=== PATIENT | female | born 1990 | race American Indian/Alaskan Native ===

== ENCOUNTER 2017-09-21 11:28 | Outpatient (CLI) | payer MEDICAID ==
--- NOTE | 2017-09-21 13:06 | Ultrasound Report ---
BIOPHYSICAL PROFILE: 09/21/17 11:28:00 CLINICAL: Well Being FINDINGS: The biophysical profile was scored as followin - breathing movements 2 - movements 2 - posture and tone 2 - Qualitative amniotic fluid volume 8 - TOTAL SCORE OF POSSIBLE 8 Heart Rate (bpm) = 147 IMPRESSION: Normal study
--- NOTE | 2017-09-21 13:11 | Ultrasound Report ---
OBSTETRICAL ULTRASOUND: 09/21/17 11:34:00 CLINICAL:Post dates. Check weight and fluid. COMPARISON:None. Gestation: [place] Position: Cephalic Amniotic Fluid: Within normal limits. CHAD = 14.2 Heart Rate: 136 BPM A survey was not performed. Measurements: BPD: 9.7 cm = 39 w 4 d HC: 34 cm = 39 w 5 d AC: 33.3 cm = 37 w 2 d FL: 7.3 cm = 37 w 2 d HC/AC Ratio: 1.03 Cephalic Index: 81.7 Estimated Weight: 3313 grams which is at the 16th percentile. LMP: 12/08/16 IMPRESSION: Single living intrauterine fetus at 41 weeks 0 days based on clinical dating. growth lag. Clinical age = 41 w 0 d EDC: 09/14/17 US Gest. Age = 38 w 3 d EDC: 10/02/17
== END 2017-09-21 13:33 | disposition home or self-care (01) ==
LOC: TRG 11:28 → LD 11:29 → TRG 13:32
PROVIDERS: ATTEND Obstetrics & Gynecology
DX: O48.0 Post-term pregnancy (principal); Z3A.41 41 weeks gestation of pregnancy
CPT/HCPCS: 59025; 76816; 76819

== ENCOUNTER 2017-09-25 20:02 | Inpatient (IN) | payer OTHER, MEDICAID ==
[2017-09-25] MEDS ORDERED: SUBLIMAZE IV PRN (21:07)
[2017-09-25] MEDS ORDERED: BRETHINE SUB-Q PRN (21:07)
[2017-09-25] MEDS ORDERED: ePHEDrine SULFATE IV PRN (21:07)
[2017-09-25] MEDS ORDERED: MINERAL OIL PO PRN (21:07)
[2017-09-25] MEDS ORDERED: STADOL IV PRN (21:07)
[2017-09-25] MEDS ORDERED: ZOFRAN IV PRN (21:07)
[2017-09-25] MEDS ORDERED: XYLOCAINE 2% INFILTRATI ONE (21:07)
[2017-09-25] MEDS ORDERED: CERVIDIL VG ONE (21:07)
[2017-09-25] MEDS ORDERED: AMBIEN PO PRN (21:10)
--- NOTE | 2017-09-25 21:16 | History and Physical Report ---
History of Present Illness Date of examination: 09/25/17 Date of admission: 09/25/17 20:02 Chief complaint: IOL @ 41+4 History of present illness: EDC Confirmation: 09/14/2017 Past History : 1 Term Births: 0 Premature Births: 0 Living Children: 0 Para: 0 Mult. Births: 0 Prev : 0 Prev. attempt? 0 Aborta: 0 Elect. Ab: 0 Spont. Ab: 0 Ectopics: 0 Past Medical History: Negative Past Medical History Past Surgical History: negative Past Medical History Anesthesia Complications: negative Anemia: negative Autoimmune Disorder: negative Bleeding Disorder: negative Blood Transfusions: negative Breast Disease: negative Diabetes: negative Heart Disease: negative Hypertension: negative Hepatitis/Liver Disease: negative Kidney Disease/UTI: negative Neurologic/Epilepsy/Migraines: negative Phlebitis/Varicosities: negative Psychiatric: negative Pulmonary Disease/Asthma: negative Thyroid Disease: negative Hospitalizations: negative Surgery (Non-modern and contemporary art curator): negative Abnormal PAP: negative SHAYLEE Exposure: negative Infertility: negative Uterine Anomaly: negative Uterine Surgery (not C/S): negative Other Gynecologic Problems: negative Family Hx: Aunt: breast cancer () Social Hx: Single Works for [employer] No ETOH/Drugs/Smoking Infection History Hx of STD: none HIV Risk Eval: no Hepatitis B Risk Eval: low risk Personal hx. of genital herpes: no Partner hx. of genital herpes: no Rash, Viral, or Febrile illness since last LMP? no Varicella/Chicken Pox Status: Unknown Genetic History Congenital Heart Defect: Mom: no Dad: no Adam Disease: Mom: no Dad: no Thalassemia Mom: no Dad: no Neural Tube Defect Mom: no Dad: no Down's Syndrome Mom: no Dad: no Yuriy-Sachs Mom: no Dad: no Sickle Cell Disease/Trait Mom: no Dad: no Hemophilia Mom: no Dad: no Muscular Dystrophy Mom: no Dad: no Cystic Fibrosis Mom: no Dad: no Larisa Chorea Mom: no Dad: no Mental Retardation Mom: no Dad: no Fragile X Mom: no Dad: no Other Genetic/Chromosomal Disorder Mom: no Dad: no Child w/other defect Mom: no Dad: no Enviromental Exposures Xray Exposure: no Medication, drug, or alcohol use since LMP: no Chemical/Other Exposure: no Exposure to Cat Liter: no Hx of Parvovirus (Fifth Disease): no Occupational Exposure to Children: none Active Medications (reviewed today): None Current Allergies (reviewed today): No known allergies Past History Past Medical History: no pertinent history Past Surgical History: no surgical history - Obstetrical History Expected Date of Delivery: 09/14/17 Actual Gestation: 41 Week(s) 4 Day(s) : 1 Para: 0 Hx # Term Pregnancies: 0 Number of Pregnancies: 0 Spontaneous Abortions: 0 Induced : 0 Number of Living Children: 0 Medications and Allergies Allergies Allergy/AdvReac Type Severity Reaction Status Date / Time No Known Allergies Allergy Unverified 09/21/17 11:31 - Physical Exam Breasts: Positive: normal Cardiovascular: Regular rate Lungs: Positive: Clear to auscultation Abdomen: Positive: normal appearance, soft Genitourinary (Female): Positive: normal external genitalia, normal perenium Vulva: both: normal Vagina: Positive: normal moisture Uterus: Positive: normal size Extremities: Positive: normal Deep Tendon Reflex Grade: Normal +2 - Obstetrical FHR: category 1 Uterine Contraction Monitor Mode: External Cervical Dilatation: 0.5 Cervical Effacement Percentage: 30 station: -3 Uterine Contraction Pattern: Regular Uterine Tone Measurement Phase: Contraction Uterine Contraction Intensity: Mild Results Result Diagrams: 09/25/17 21:40 All other labs normal. Assessment and Plan 27y/o @ 41+4 weeks, admitted for induction of labor d/t post dates. She received regular care after 30 weeks but missed all appointments between 16-30 weeks gestation. GBS negative. US EFW done at [facility] 09/21/17 showed 3313gms, cephalic with a normal CHAD. Plan for cervical ripening tonight and pitocin tomorrow. elevated b/p noted upon admission, will get pre-e labs. pt has no hx of elevated b/p this . She denies DUMONT, visual changes or epigastric pain. - Patient Problems (1) Prolonged Current Visit: Yes Status: Acute (2) 41 weeks gestation of Current Visit: Yes Status: Acute (3) Elevated blood pressure affecting , antepartum Current Visit: Yes Status: Acute Plan to address problem: Pre-e labs monitoring of b/p and labs work
[2017-09-25] MEDS ORDERED: PITOCin/NS 20 UNIT/1000ML DRIP 20 UNITS/1,000 ML BAG IV SCH (22:00)
[2017-09-25 22:01] LABS: Hematocrit 31.2 % (30.3-42.9); Hemoglobin 10.4 gm/dl (10.1-14.3); Mean Corpuscular HGB Conc 33 % (30-34); Mean Corpuscular Hemoglobin 27 pg (28-32); Mean Corpuscular Volume 81 fl (79-97); Platelet Count 180 K/mm3 (140-440); Red Blood Count 3.87 M/mm3 (3.65-5.03); Red Cell Distribution Width 16.4 % (13.2-15.2)
[2017-09-25] MEDS: LACTATED RINGERS 1,000 ML IV SCH ×2 (22:05→23:22)
[2017-09-25 22:21] LABS: Alanine Aminotransferase 11 units/L (7-56); Uric Acid 4.9 mg/dL (3.5-7.6)
[2017-09-25] MEDS: PITOCin/NS 30 UNIT/500ML 30 UNITS/500 ML BAG IV SCH (23:22)
[2017-09-26 04:30] LABS: Amorphous Crystals,Urine 1+; Bacteria,Urine 2+ /HPF (Negative); Bilirubin,Urine NEG (Negative); Blood,Urine MOD (Negative); Color,Urine Yellow (Yellow); Hyaline Casts,Urine 3 /LPF; Urobilinogen,Urine < 2.0 mg/dL (<2.0)
--- NOTE | 2017-09-26 05:43 | Progress Note ---
Assessment and Plan pt denies any DUMONT, blurred vision, chest pain at this time BPs noted to be elevated 160-/90-80 DTRs wnl Edema noted on LE SVE 2,100,-3 SROM @ 0300 with continued copious amts of clear fluid. Internal monitors placed. Pitocin remains @ 4mu. Will observe strip X 30 mins if no further variable decels will try to increase pitocin. Will consult with MD personal assistant Subjective - Subjective Date of service: 09/26/17 (pt rates pain @ 6-7; desires epidural; variable decels Internal monitors placed) Principal diagnosis: IOL IUP @ 41.4weeks; mild PreE Patient reports: movement normal, contractions (irregular; some coupling) Objective - Vital Signs Vital Signs: Vital Signs - 12hr 09/25/17 09/26/17 21:19 03:57 Temperature 98.0 F 98.7 F Pulse Rate 89 80 Respiratory 16 16 Rate Blood Pressure 165/90 166/89 [Right] O2 Sat by Pulse 98 Oximetry - Exam Breasts: deferred Cardiovascular: Regular rate Lungs: Normal air movement Abdomen: Present: normal appearance, soft. Absent: distention, tenderness Vulva: both: normal Uterus: Present: normal FHR: auscultation normal, category 1 (2variables; overall Cat 1) Uterine Contraction Monitor Mode: Internal Cervical Dilatation: 2 (pt continues to have copious amts of clear fluid) Cervical Effacement Percentage: 100 (Internals applied) station: -3 Uterine Contraction Frequency (min): q2-4 Uterine Contraction Duration: 45 Uterine Contraction Pattern: Irregular Uterine Tone Measurement Phase: Resting Uterine Contraction Intensity: Moderate Extremities: edema (bilateral LE) Deep Tendon Reflex Grade: Normal +2 - Labs Labs: Abnormal Labs 09/25/17 09/25/17 09/25/17 04:00 21:40 21:40 MCH 27 L RDW 16.4 H Creatinine 0.5 L Urine pH 8.0 H Laboratory Results - last 24 hr 09/25/17 09/25/17 09/25/17 04:00 21:40 21:40 WBC 6.6 RBC 3.87 Hgb 10.4 Hct 31.2 MCV 81 MCH 27 L MCHC 33 RDW 16.4 H Plt Count 180 Creatinine Estimated GFR Uric Acid AST ALT Lactate Dehydrogenase Urine Color Yellow Urine Turbidity Cloudy Urine pH 8.0 H Ur Specific [place] 1.004 Urine Protein 100 mg/dl Urine Glucose (UA) Neg Urine Ketones Neg Urine Blood Mod Urine Nitrite Neg Urine Bilirubin Neg Urine Urobilinogen < 2.0 Ur Leukocyte Esterase Neg Urine WBC (Auto) 6.0 Urine RBC (Auto) 148.0 U Epithel Cells (Auto) 3.0 Urine Bacteria (Auto) 2+ Amorphous Crystals 1+ Hyaline Casts 3 Blood Type O POSITIVE Antibody Screen Negative 09/25/17 21:40 WBC RBC Hgb Hct MCV MCH MCHC RDW Plt Count Creatinine 0.5 L Estimated GFR > 60 Uric Acid 4.9 AST 15 ALT 11 Lactate Dehydrogenase 166 Urine Color Urine Turbidity Urine pH Ur Specific [place] Urine Protein Urine Glucose (UA) Urine Ketones Urine Blood Urine Nitrite Urine Bilirubin Urine Urobilinogen Ur Leukocyte Esterase Urine WBC (Auto) Urine RBC (Auto) U Epithel Cells (Auto) Urine Bacteria (Auto) Amorphous Crystals Hyaline Casts Blood Type Antibody Screen
[2017-09-26] MEDS: LACTATED RINGERS 1,000 ML IV SCH ×4 (06:02→18:03)
[2017-09-26] MEDS ORDERED: MAGNESIUM SULFATE 4GM/100ML 4 GM/100 ML BAG IV ONE ×2 (06:11→06:16)
--- NOTE | 2017-09-26 06:15 | Event Note ---
Date: 09/26/17 (consulted with ) DX now mild pre-e Will start MGSO4. Pt aware All questions addressed. Orders in EMR
[2017-09-26] MEDS ORDERED: MAGNESIUM SULFATE 40GM/1000ML 40 GM/1,000 ML BAG IV ONE (06:16)
[2017-09-26] MEDS: MAGNESIUM SULFATE 40GM/1000ML 40 GM/1,000 ML BAG IV SCH (06:47)
[2017-09-26] MEDS ORDERED: NACL 0.9% 1000 ML 1,000 ML ONE ×2 (07:42→15:32)
--- NOTE | 2017-09-26 08:05 | Progress Note ---
Assessment and Plan Explained all findings to pt concerning variable decels with baby. Pit off O2 on Fluid bolus for epidural SVE 3-4,100,-2 ISE replaced. Amnioinfusion started. Dr Burris on unit aware of pt condition. Will restart pit @ 2mu Re-eval prn. Subjective - Subjective Date of service: 09/26/17 Principal diagnosis: IOL IUP @ 41.4weeks; mild PreE Patient reports: movement normal, contractions (irregular; some coupling) Objective - Vital Signs Vital Signs: Vital Signs - 12hr 09/25/17 09/25/17 09/25/17 21:19 22:27 23:02 Temperature 98.0 F Pulse Rate 89 92 H 79 Respiratory 16 Rate Blood Pressure 165/90 171/96 158/99 [Right] O2 Sat by Pulse Oximetry 09/26/17 09/26/17 09/26/17 00:03 00:34 01:32 Temperature Pulse Rate 84 86 86 Respiratory Rate Blood Pressure 139/90 138/87 137/89 [Right] O2 Sat by Pulse Oximetry 09/26/17 09/26/17 09/26/17 02:33 03:02 03:33 Temperature Pulse Rate 68 72 65 Respiratory Rate Blood Pressure 150/80 153/85 176/83 [Right] O2 Sat by Pulse Oximetry 09/26/17 09/26/17 09/26/17 03:57 04:32 05:03 Temperature 98.7 F Pulse Rate 80 70 90 Respiratory 16 Rate Blood Pressure 166/89 146/81 176/89 [Right] O2 Sat by Pulse 98 Oximetry 09/26/17 09/26/17 09/26/17 05:20 05:32 06:03 Temperature 99.1 F Pulse Rate 76 68 80 Respiratory Rate Blood Pressure 143/85 159/76 143/86 [Right] O2 Sat by Pulse Oximetry 09/26/17 09/26/17 09/26/17 06:33 06:36 06:41 Temperature Pulse Rate 82 89 92 H Respiratory 20 Rate Blood Pressure 164/94 136/69 130/64 [Right] O2 Sat by Pulse 100 Oximetry 09/26/17 06:47 Temperature Pulse Rate 91 H Respiratory 18 Rate Blood Pressure 135/76 [Right] O2 Sat by Pulse 100 Oximetry - Exam Breasts: deferred Cardiovascular: Regular rate Lungs: Normal air movement Abdomen: Present: normal appearance, soft. Absent: distention, tenderness Uterus: Present: normal FHR: auscultation normal, category 2 (deep variables ) Uterine Contraction Monitor Mode: Internal Cervical Dilatation: 3.5 Cervical Effacement Percentage: 100 station: -2 Uterine Contraction Pattern: Irregular Uterine Tone Measurement Phase: Resting Uterine Contraction Intensity: Moderate - Labs Labs: Abnormal Labs 09/25/17 09/25/17 09/25/17 04:00 21:40 21:40 MCH 27 L RDW 16.4 H Creatinine 0.5 L Magnesium Urine pH 8.0 H 09/26/17 06:55 MCH RDW Creatinine Magnesium 5.10 H Urine pH Laboratory Results - last 24 hr 09/25/17 09/25/17 09/25/17 04:00 21:40 21:40 WBC 6.6 RBC 3.87 Hgb 10.4 Hct 31.2 MCV 81 MCH 27 L MCHC 33 RDW 16.4 H Plt Count 180 Creatinine Estimated GFR Uric Acid Magnesium AST ALT Lactate Dehydrogenase Urine Color Yellow Urine Turbidity Cloudy Urine pH 8.0 H Ur Specific [place] 1.004 Urine Protein 100 mg/dl Urine Glucose (UA) Neg Urine Ketones Neg Urine Blood Mod Urine Nitrite Neg Urine Bilirubin Neg Urine Urobilinogen < 2.0 Ur Leukocyte Esterase Neg Urine WBC (Auto) 6.0 Urine RBC (Auto) 148.0 U Epithel Cells (Auto) 3.0 Urine Bacteria (Auto) 2+ Amorphous Crystals 1+ Hyaline Casts 3 Blood Type O POSITIVE Antibody Screen Negative 09/25/17 09/26/17 21:40 06:55 WBC RBC Hgb Hct MCV MCH MCHC RDW Plt Count Creatinine 0.5 L Estimated GFR > 60 Uric Acid 4.9 Magnesium 5.10 H AST 15 ALT 11 Lactate Dehydrogenase 166 Urine Color Urine Turbidity Urine pH Ur Specific [place] Urine Protein Urine Glucose (UA) Urine Ketones Urine Blood Urine Nitrite Urine Bilirubin Urine Urobilinogen Ur Leukocyte Esterase Urine WBC (Auto) Urine RBC (Auto) U Epithel Cells (Auto) Urine Bacteria (Auto) Amorphous Crystals Hyaline Casts Blood Type Antibody Screen
--- NOTE | 2017-09-26 08:11 | Anesthesia Consultation ---
Anesthesia Consult and Med Hx Date of service: 09/26/17 - Airway Anesthetic Teeth Evaluation: Good ROM Head & Neck: Adequate Mental/Hyoid Distance: Adequate Mallampati Class: Class II Intubation Access Assessment: Probably Good - Pre-Operative Health Status ASA Pre-Surgery Classification: ASA2 Proposed Anesthetic Plan: Epidural, Spinal - Pulmonary Hx Asthma: No COPD: No Hx Pneumonia: No - Cardiovascular System Hx Hypertension: No (PIH) - Central Nervous System Hx Seizures: No Hx Psychiatric Problems: No - Endocrine Hx Renal Disease: No Hx End Stage Renal Disease: No Hx Hypothyroidism: No Hx Hyperthyroidism: No - Hematic Hx Anemia: No Hx Sickle Cell Disease: No - Other Systems Hx Alcohol Use: No
[2017-09-26] MEDS ORDERED: ePHEDrine SULFATE IV PRN (08:30)
[2017-09-26] MEDS ORDERED: NARCAN 2 MG/2 ML IV PRN (09:00)
[2017-09-26] MEDS: fentaNYL-BUPIV 2 MCG/ML-0.125% 200 MCG/100 ML BAG EPIDURAL SCH ×2 (09:50→18:00)
[2017-09-26] MEDS: PITOCin/NS 30 UNIT/500ML 30 UNITS/500 ML BAG IV SCH ×5 (10:02→19:39)
--- NOTE | 2017-09-26 13:33 | Progress Note ---
Assessment and Plan Pt resting No c/o voiced Cervical chg noted Pit @ 12 mu Will re-eval as needed. Subjective - Subjective Date of service: 09/26/17 (comfortable with epidural) Principal diagnosis: IOL IUP @ 41.4weeks; mild PreE Patient reports: movement normal, contractions (irregular; some coupling) Objective - Vital Signs Vital Signs: Vital Signs - 12hr 09/26/17 09/26/17 09/26/17 01:32 02:33 03:02 Temperature Pulse Rate 86 68 72 Respiratory Rate Blood Pressure 137/89 150/80 153/85 [Right] O2 Sat by Pulse Oximetry 09/26/17 09/26/17 09/26/17 03:33 03:57 04:32 Temperature 98.7 F Pulse Rate 65 80 70 Respiratory 16 Rate Blood Pressure 176/83 166/89 146/81 [Right] O2 Sat by Pulse 98 Oximetry 09/26/17 09/26/17 09/26/17 05:03 05:20 05:32 Temperature Pulse Rate 90 76 68 Respiratory Rate Blood Pressure 176/89 143/85 159/76 [Right] O2 Sat by Pulse Oximetry 09/26/17 09/26/17 09/26/17 06:03 06:33 06:36 Temperature 99.1 F Pulse Rate 80 82 89 Respiratory 20 Rate Blood Pressure 143/86 164/94 136/69 [Right] O2 Sat by Pulse 100 Oximetry 09/26/17 09/26/17 09/26/17 06:41 06:47 08:04 Temperature 97.6 F Pulse Rate 92 H 91 H 98 H Respiratory 18 16 Rate Blood Pressure 130/64 135/76 134/93 [Right] O2 Sat by Pulse 100 Oximetry 09/26/17 09/26/17 09/26/17 09:24 09:34 09:38 Temperature Pulse Rate 110 H 111 H Respiratory 16 Rate Blood Pressure 136/86 123/68 134/63 [Right] O2 Sat by Pulse Oximetry 09/26/17 09/26/17 09/26/17 10:00 11:04 11:55 Temperature 96.5 F L Pulse Rate 85 87 Respiratory 16 Rate Blood Pressure 119/62 116/67 129/76 [Right] O2 Sat by Pulse Oximetry - Exam Breasts: deferred Cardiovascular: Regular rate Lungs: Normal air movement Abdomen: Present: normal appearance, soft. Absent: distention, tenderness Uterus: Present: normal FHR: auscultation normal, category 1 Uterine Contraction Monitor Mode: Internal Cervical Dilatation: 6 Cervical Effacement Percentage: 100 station: 0 Uterine Contraction Pattern: Regular Uterine Tone Measurement Phase: Resting Uterine Contraction Intensity: Moderate Extremities: edema Deep Tendon Reflex Grade: Normal +2 - Labs Labs: Abnormal Labs 09/25/17 09/25/17 09/25/17 04:00 21:40 21:40 MCH 27 L RDW 16.4 H Creatinine 0.5 L Magnesium Urine pH 8.0 H 09/26/17 09/26/17 06:55 11:34 MCH RDW Creatinine Magnesium 5.10 H 4.70 H Urine pH Laboratory Results - last 24 hr 09/25/17 09/25/17 09/25/17 04:00 21:40 21:40 WBC 6.6 RBC 3.87 Hgb 10.4 Hct 31.2 MCV 81 MCH 27 L MCHC 33 RDW 16.4 H Plt Count 180 Creatinine Estimated GFR Uric Acid Magnesium AST ALT Lactate Dehydrogenase Urine Color Yellow Urine Turbidity Cloudy Urine pH 8.0 H Ur Specific [place] 1.004 Urine Protein 100 mg/dl Urine Glucose (UA) Neg Urine Ketones Neg Urine Blood Mod Urine Nitrite Neg Urine Bilirubin Neg Urine Urobilinogen < 2.0 Ur Leukocyte Esterase Neg Urine WBC (Auto) 6.0 Urine RBC (Auto) 148.0 U Epithel Cells (Auto) 3.0 Urine Bacteria (Auto) 2+ Amorphous Crystals 1+ Hyaline Casts 3 Blood Type O POSITIVE Antibody Screen Negative 09/25/17 09/26/17 09/26/17 21:40 06:55 11:34 WBC RBC Hgb Hct MCV MCH MCHC RDW Plt Count Creatinine 0.5 L Estimated GFR > 60 Uric Acid 4.9 Magnesium 5.10 H 4.70 H AST 15 ALT 11 Lactate Dehydrogenase 166 Urine Color Urine Turbidity Urine pH Ur Specific [place] Urine Protein Urine Glucose (UA) Urine Ketones Urine Blood Urine Nitrite Urine Bilirubin Urine Urobilinogen Ur Leukocyte Esterase Urine WBC (Auto) Urine RBC (Auto) U Epithel Cells (Auto) Urine Bacteria (Auto) Amorphous Crystals Hyaline Casts Blood Type Antibody Screen
--- NOTE | 2017-09-26 17:09 | Event Note ---
Date: 09/26/17 (pt comfortable ) SVE No chg Will continue to increase pitocin Pt aware of possible operative delivery. made aware of pt's status
[2017-09-26] MEDS ORDERED: XYLOCAINE MPF 2% ONE ×4 (18:25→21:15)
[2017-09-26] MEDS ORDERED: PEPCID IV SCH (19:55)
[2017-09-26] MEDS ORDERED: REGLAN IV SCH (19:55)
[2017-09-26] MEDS ORDERED: BICITRA PO SCH (19:55)
[2017-09-26] MEDS ORDERED: PITOCin/NS 20 UNIT/1000ML DRIP 20 UNITS/1,000 ML BAG IV SCH (20:00)
[2017-09-26] MEDS ORDERED: ANCEF/STERILE WATER 2 GM/20 ML 2 GM/20 ML SYRINGE IV NR (20:00)
[2017-09-26] MEDS ORDERED: LACTATED RINGERS 1,000 ML IV SCH (20:00)
--- NOTE | 2017-09-26 20:00 | Progress Note ---
Assessment and Plan - Patient Problems (1) 41 weeks gestation of Current Visit: Yes Status: Acute (2) Mild pre-eclampsia Current Visit: Yes Status: Acute (3) Failure of cervical dilation Current Visit: Yes Status: Acute Plan to address problem: No cervical change for ~6hrs, options reviewed, risks explained, consents reviewed and signs. She voiced understanding and desires to proceed with c/s. Subjective - Subjective Date of service: 09/26/17 Principal diagnosis: IOL IUP @ 41.4weeks; mild PreE Patient reports: movement normal, contractions (irregular; some coupling) , no new complaints Objective - Vital Signs Vital Signs: Vital Signs - 12hr 09/26/17 09/26/17 09/26/17 08:04 09:24 09:34 Temperature 97.6 F Pulse Rate 98 H 110 H Respiratory 16 16 Rate Blood Pressure 134/93 136/86 123/68 [Right] O2 Sat by Pulse Oximetry 09/26/17 09/26/17 09/26/17 09:38 10:00 11:04 Temperature 96.5 F L Pulse Rate 111 H 85 Respiratory Rate Blood Pressure 134/63 119/62 116/67 [Right] O2 Sat by Pulse Oximetry 09/26/17 09/26/17 09/26/17 11:55 14:00 14:08 Temperature 97.6 F Pulse Rate 87 Respiratory 16 18 Rate Blood Pressure 129/76 130/76 [Right] O2 Sat by Pulse Oximetry 09/26/17 09/26/17 09/26/17 15:36 16:00 17:00 Temperature Pulse Rate 112 H Respiratory 20 Rate Blood Pressure 143/84 127/90 134/85 [Right] O2 Sat by Pulse Oximetry 09/26/17 09/26/17 09/26/17 18:04 18:53 19:04 Temperature 97.5 F L 97.9 F Pulse Rate 97 H 76 71 Respiratory 18 Rate Blood Pressure 137/84 116/61 85/50 [Right] O2 Sat by Pulse 96 96 Oximetry 09/26/17 19:18 Temperature Pulse Rate 82 Respiratory Rate Blood Pressure 114/64 [Right] O2 Sat by Pulse Oximetry - Exam Breasts: deferred Cardiovascular: Regular rate Lungs: Normal air movement Vulva: both: normal FHR: category 1 - Labs Labs: Abnormal Labs 04/25/18 04/25/18 04/25/18 04:00 21:40 21:40 MCH 27 L RDW 16.4 H Creatinine 0.5 L Magnesium Urine pH 8.0 H 09/26/17 09/26/17 09/26/17 06:55 11:34 18:53 MCH RDW Creatinine Magnesium 5.10 H 4.70 H 5.60 H Urine pH Laboratory Results - last 24 hr 09/25/17 09/25/17 09/25/17 04:00 21:40 21:40 WBC 6.6 RBC 3.87 Hgb 10.4 Hct 31.2 MCV 81 MCH 27 L MCHC 33 RDW 16.4 H Plt Count 180 Creatinine Estimated GFR Uric Acid Magnesium AST ALT Lactate Dehydrogenase Urine Color Yellow Urine Turbidity Cloudy Urine pH 8.0 H Ur Specific [place] 1.004 Urine Protein 100 mg/dl Urine Glucose (UA) Neg Urine Ketones Neg Urine Blood Mod Urine Nitrite Neg Urine Bilirubin Neg Urine Urobilinogen < 2.0 Ur Leukocyte Esterase Neg Urine WBC (Auto) 6.0 Urine RBC (Auto) 148.0 U Epithel Cells (Auto) 3.0 Urine Bacteria (Auto) 2+ Amorphous Crystals 1+ Hyaline Casts 3 RPR Nonreactive Blood Type Antibody Screen 09/25/17 09/25/17 09/26/17 21:40 21:40 06:55 WBC RBC Hgb Hct MCV MCH MCHC RDW Plt Count Creatinine 0.5 L Estimated GFR > 60 Uric Acid 4.9 Magnesium 5.10 H AST 15 ALT 11 Lactate Dehydrogenase 166 Urine Color Urine Turbidity Urine pH Ur Specific [place] Urine Protein Urine Glucose (UA) Urine Ketones Urine Blood Urine Nitrite Urine Bilirubin Urine Urobilinogen Ur Leukocyte Esterase Urine WBC (Auto) Urine RBC (Auto) U Epithel Cells (Auto) Urine Bacteria (Auto) Amorphous Crystals Hyaline Casts RPR Blood Type O POSITIVE Antibody Screen Negative 09/26/17 09/26/17 11:34 18:53 WBC RBC Hgb Hct MCV MCH MCHC RDW Plt Count Creatinine Estimated GFR Uric Acid Magnesium 4.70 H 5.60 H AST ALT Lactate Dehydrogenase Urine Color Urine Turbidity Urine pH Ur Specific [place] Urine Protein Urine Glucose (UA) Urine Ketones Urine Blood Urine Nitrite Urine Bilirubin Urine Urobilinogen Ur Leukocyte Esterase Urine WBC (Auto) Urine RBC (Auto) U Epithel Cells (Auto) Urine Bacteria (Auto) Amorphous Crystals Hyaline Casts RPR Blood Type Antibody Screen
--- NOTE | 2017-09-26 20:53 | Anesthesia Day of Surgery ---
Anesthesia Day of Surgery - Day of Surgery Patient Examined: Yes Patient H&P Reviewed: Yes Patient is NPO: Yes
[2017-09-26] MEDS ORDERED: ASTRAMORPH PF 10MG/10ML ONE (21:17)
[2017-09-26] MEDS ORDERED: WATER FOR IRRIG STERILE IR ONE (21:20)
[2017-09-26] MEDS ORDERED: NACL 0.9% IR ONE (21:20)
[2017-09-26] MEDS ORDERED: SUBLIMAZE ONE (21:58)
[2017-09-26] MEDS ORDERED: TORADOL ONE (22:34)
--- NOTE | 2017-09-26 23:19 | Operative Report ---
Operative Report Operative Report: Date: 09/26/2017 Preoperative diagnosis: 1. Intrauterine at 41 5/7 weeks 2. Failure to dilate Postoperative diagnosis: 1. Intrauterine at 41 5/7 weeks 2. Failure to dilate Procedure: Low uterine transverse incision for delivery Surgeon: Kalina Burris MD Learning Support Resource Room Teacher: Carol Gillespie Anesthesia: Epidural Anesthesiologist: Jessica Hoffmann M.D. Estimated blood loss: 500 mL Urine out: [] mL Findings: Live born female infant. Weight 7 lbs. 12 oz. Apgars 8 at 1 minute and 9 at 9 minutes. Uterus normal, tubes normal, ovaries normal. Procedure: After risk, benefits, complications, consequences and alternatives for this procedure were discussed with patient and consents were reviewed and signed, she was taken to the OR where epidural anesthesia was bolused. She was then placed in the left lateral tilt position, and prepped and draped in the usual sterile fashion. Timeout was performed, and an appropriate level of anesthesia was noted, a Pfannenstiel incision was made and extended to the fascia which was incised and extended in the lateral directions. The overlying fascia was sharply dissected away from the underlying rectus muscles in the superior and inferior directions. The midline was entered bluntly. The vesicouterine fold was incised and with blunt dissection the bladder flap was created. A transverse incision was made in the lower uterine segment and extended in superiolateral direction with finger fractionation. Clear fluid was noted. The infant was delivered from cephalic occiput posterior position. Mouth and nose were bulb suctioned. Spontaneous cry and excellent tone were noted. Cord was doubly clamped and cut. The was given to /resuscitation team present. The placenta was manually extracted. The uterus was then exteriorized and cleared of any further products of conception or placental tissue. The incision was reapproximated using 0 Vicryl in a running interlocking stitch. Grossly normal uterus, tubes and ovaries were noted. Once hemostasis was noted, the uterus was allowed back into the pelvic cavity. The pelvis was irrigated with warm normal saline. Again hemostasis was noted . Surgicel applied for further hemostasis. Interceed was then placed to prevent adhesions. Then attention was turned to the rectus muscles. The rectus muscles reapproximated using 0 Vicryl in a simple interrupted stitch x []. Once hemostasis was noted, the fascia was reapproximated using 0 Vicryl running stitch fashion. Once hemostasis was noted skin incision was reapproximated using 4-0 Vicryl on a Maury needle in a subcuticular manner. Counts were correct 3. Patient tolerated procedure well state recovery room in stable condition.
[2017-09-26] MEDS ORDERED: HEMABATE IM ONE (23:34)
[2017-09-26] MEDS ORDERED: CYTOTEC ONE (23:38)
[2017-09-26] MEDS ORDERED: LOMOTIL PO STA (23:48)
[2017-09-26] MEDS ORDERED: NACL 0.9% 500 ML 500 ML IV ONE (23:54)
[2017-09-26] MEDS ORDERED: LOMOTIL PO PRN (23:55)
[2017-09-27] MEDS ORDERED: CYTOTEC PR ONE
[2017-09-27] MEDS ORDERED: MILK OF MAGNESIA PO PRN (00:03)
[2017-09-27] MEDS ORDERED: TYLENOL PR PRN (00:03)
[2017-09-27] MEDS ORDERED: TORADOL IV PRN (00:03)
[2017-09-27] MEDS ORDERED: MYLICON PO PRN (00:03)
[2017-09-27] MEDS ORDERED: NARCAN 0.4 MG/1 ML IV PRN (00:03)
[2017-09-27] MEDS ORDERED: MORPHINE IV PRN (00:03)
[2017-09-27] MEDS ORDERED: LANSINOH TP PRN (00:03)
[2017-09-27] MEDS ORDERED: SODIUM CHLORIDE FLUSH SYRINGE 10 ML IV NR (00:03)
[2017-09-27] MEDS ORDERED: TYLENOL PO PRN (00:03)
[2017-09-27] MEDS ORDERED: PERCOCET 5/325 PO PRN (00:03)
[2017-09-27] MEDS ORDERED: PITOCin/NS 20 UNIT/1000ML DRIP 20 UNITS/1,000 ML BAG IV SCH (00:03)
[2017-09-27] MEDS ORDERED: TUCKS PAD TP PRN (00:03)
[2017-09-27] MEDS ORDERED: ANCEF/NS 1 GM/50 ML 1 GM/50 ML BAG IV SCH (00:03)
[2017-09-27] MEDS ORDERED: MOTRIN PO PRN (00:03)
[2017-09-27] MEDS ORDERED: PHENERGAN PR PRN (00:03)
[2017-09-27] MEDS ORDERED: HEMABATE IM ONE ×3 (00:07→00:14)
--- NOTE | 2017-09-27 00:21 | Progress Note ---
Assessment and Plan - Patient Problems (1) 41 weeks gestation of Current Visit: Yes Status: Resolved (2) Mild pre-eclampsia Current Visit: Yes Status: Acute (3) Failure of cervical dilation Current Visit: Yes Status: Resolved (4) bleeding Current Visit: Yes Status: Acute Qualifiers: hemorrhage type: secondary hemorrhage Qualified Code( s): O72.2 - Delayed and secondary hemorrhage Plan to address problem: estimate EBL total now ~1500mL Subjective - Subjective Date of service: 09/27/17 Principal diagnosis: DOD, LTCS, PPH, Preeclampsia Interval history: In PACU, ~1000mL blood/clots expressed from the uterus/vagina with manual uteirn massge. Clots in lower uterine segment manually evacuated with sterile gloves. She has received hemabate 250mg IM x2, Pitocin 10u IM, Pitocin 40u IVssecong 20u bag bolusing now) and Cytotec 1000mcg [place]. Fundu now firm, bleeding appears controlled. Labs pending. She has 2uPRBC on hold for now. Will continue observation in L&D overnight Objective - Vital Signs Latest vital signs: Vital Signs Temp Pulse Resp BP BP Pulse Ox 09/26/17 23:31 98.8 F 09/26/17 23:20 98 H 18 132/89 09/26/17 23:15 96 H 20 132/89 09/26/17 23:10 98 H 20 144/91 09/26/17 23:05 94 H 20 138/91 09/26/17 23:00 95 H 18 137/98 09/26/17 22:55 96 H 20 150/87 09/26/17 22:50 90 20 156/89 09/26/17 22:45 92 H 92 H 143/98 09/26/17 22:40 90 18 143/89 09/26/17 22:35 91 H 17 149/85 09/26/17 22:33 90 18 144/87 09/26/17 22:23 98.2 F 100 H 20 151/96 09/26/17 19:18 82 114/64 09/26/17 19:04 97.9 F 71 18 85/50 96 09/26/17 18:53 76 116/61 96 09/26/17 18:04 97.5 F L 97 H 137/84 09/26/17 17:00 112 H 134/85 09/26/17 16:00 127/90 09/26/17 15:36 20 143/84 09/26/17 14:08 97.6 F 18 09/26/17 14:00 130/76 09/26/17 11:55 87 16 129/76 09/26/17 11:04 96.5 F L 85 116/67 09/26/17 10:00 119/62 09/26/17 09:38 111 H 134/63 09/26/17 09:34 123/68 09/26/17 09:24 110 H 16 136/86 09/26/17 08:04 97.6 F 98 H 16 134/93 09/26/17 06:47 91 H 18 135/76 100 09/26/17 06:41 92 H 130/64 09/26/17 06:36 89 136/69 09/26/17 06:33 82 20 164/94 100 09/26/17 06:03 99.1 F 80 143/86 09/26/17 05:32 68 159/76 09/26/17 05:20 76 143/85 09/26/17 05:03 90 176/89 09/26/17 04:32 70 146/81 09/26/17 03:57 98.7 F 80 16 166/89 98 09/26/17 03:33 65 176/83 09/26/17 03:02 72 153/85 09/26/17 02:33 68 150/80 09/26/17 01:32 86 137/89 09/26/17 00:34 86 138/87 Intake and Output 09/26/17 09/26/17 09/27/17 14:59 22:59 06:59 Intake Total 625.364 8978.533 Output Total 1900 1150 250 Balance -2499.651 9300.533 -250 Intake: IV 951.050 0515.533 Lactated Ringers 1,000 ml 614.583 887.5 @ 125 mls/hr IV DIRECT AYANA Rx#:[id number] PITOCin/NS 30 UNIT/500ML 71.866 87.033 30 units In 500 ml @ 1 MILLIUNITS/MIN 1 mls/hr IV TITR AYANA Rx#:[id number] Output: Urine 1900 1150 250 Indwelling Catheter 1900 900 Other: Total, Output Amount 1900 700 - Exam Uterus: Present: firm, fundal height above umbilicus (~2cm) Incision: Present: dressed - Labs Labs: Abnormal lab results 09/25/17 09/25/17 09/26/17 Range/Units 04:00 21:40 06:55 Magnesium 5.10 H (1.7-2.3) mg/dL Urine pH 8.0 H (5.0-7.0) Crossmatch See Detail 09/26/17 09/26/17 Range/Units 11:34 18:53 Magnesium 4.70 H 5.60 H (1.7-2.3) mg/dL Urine pH (5.0-7.0) Crossmatch
[2017-09-27 00:25] LABS: Hematocrit 27.4 % (30.3-42.9); Hemoglobin 8.9 gm/dl (10.1-14.3); Mean Corpuscular HGB Conc 32 % (30-34); Mean Corpuscular Hemoglobin 27 pg (28-32); Mean Corpuscular Volume 82 fl (79-97); Platelet Count 185 K/mm3 (140-440); Red Blood Count 3.34 M/mm3 (3.65-5.03)
[2017-09-27 00:45] LABS: INR 0.93 (0.87-1.13)
[2017-09-27 00:46] LABS: Partial Thromboplastin Time 27.5 Sec. (24.2-36.6)
[2017-09-27] MEDS: D5LR 1,000 ML IV SCH ×2 (01:16→14:15)
[2017-09-27] MEDS: ZOFRAN IV PRN ×2 (01:53→16:09)
[2017-09-27] MEDS: MAGNESIUM SULFATE 40GM/1000ML 40 GM/1,000 ML BAG IV SCH (04:32)
[2017-09-27 06:35] LABS: Hematocrit 24.6 % (30.3-42.9); Hemoglobin 7.6 gm/dl (10.1-14.3)
[2017-09-27] MEDS: ceFAZolin 1 GM in NACL 0.9% 20 ML IV SCH ×2 (06:50→16:08)
--- NOTE | 2017-09-27 08:52 | Progress Note ---
Assessment and Plan patient currently in l&D d/t PPH. She has no complaints. Fudus firm, pad is dry with only scant bleeding noted during fundal massage. Pt denies DUMONT, visual changes or epigastric pain. current H&H 7.6/24.6, another ordered for 1200 today. Dressing D&I, adequate urine output. Bp's 120's-140/60's-80's. Patient is to be transfered to [facility]. Will continue to monitor closely. - Patient Problems (1) delivery delivered Current Visit: Yes Status: Acute (2) Mild pre-eclampsia Current Visit: Yes Status: Acute (3) bleeding Current Visit: Yes Status: Acute Qualifiers: hemorrhage type: secondary hemorrhage Qualified Code( s): O72.2 - Delayed and secondary hemorrhage Subjective - Subjective Date of service: 09/27/17 Principal diagnosis: <12hr postop s/p LTCS, PPH, Preeclampsia Interval history: EDC Confirmation: 09/14/2017 Past History : 1 Term Births: 0 Premature Births: 0 Living Children: 0 Para: 0 Mult. Births: 0 Prev : 0 Prev. attempt? 0 Aborta: 0 Elect. Ab: 0 Spont. Ab: 0 Ectopics: 0 Past Medical History: Negative Past Medical History Past Surgical History: negative Past Medical History Anesthesia Complications: negative Anemia: negative Autoimmune Disorder: negative Bleeding Disorder: negative Blood Transfusions: negative Breast Disease: negative Diabetes: negative Heart Disease: negative Hypertension: negative Hepatitis/Liver Disease: negative Kidney Disease/UTI: negative Neurologic/Epilepsy/Migraines: negative Phlebitis/Varicosities: negative Psychiatric: negative Pulmonary Disease/Asthma: negative Thyroid Disease: negative Hospitalizations: negative Surgery (Non-overcoiler): negative Abnormal PAP: negative SHAYLEE Exposure: negative Infertility: negative Uterine Anomaly: negative Uterine Surgery (not C/S): negative Other Gynecologic Problems: negative Family Hx: Aunt: breast cancer () Social Hx: Single Works for shipping [employer] No ETOH/Drugs/Smoking Infection History Hx of STD: none HIV Risk Eval: no Hepatitis B Risk Eval: low risk Personal hx. of genital herpes: no Partner hx. of genital herpes: no Rash, Viral, or Febrile illness since last LMP? no Varicella/Chicken Pox Status: Unknown Genetic History Congenital Heart Defect: Mom: no Dad: no Adam Disease: Mom: no Dad: no Thalassemia Mom: no Dad: no Neural Tube Defect Mom: no Dad: no Down's Syndrome Mom: no Dad: no Yuriy-Sachs Mom: no Dad: no Sickle Cell Disease/Trait Mom: no Dad: no Hemophilia Mom: no Dad: no Muscular Dystrophy Mom: no Dad: no Cystic Fibrosis Mom: no Dad: no [place] Chorea Mom: no Dad: no Mental Retardation Mom: no Dad: no Fragile X Mom: no Dad: no Other Genetic/Chromosomal Disorder Mom: no Dad: no Child w/other defect Mom: no Dad: no Enviromental Exposures Xray Exposure: no Medication, drug, or alcohol use since LMP: no Chemical/Other Exposure: no Exposure to Cat Liter: no Hx of Parvovirus (Fifth Disease): no Occupational Exposure to Children: none Active Medications (reviewed today): None Current Allergies (reviewed today): No known allergies Patient reports: pain well controlled, no nauseated [place]: doing well (in holding nursery d/o pt being held in L&D) Objective - Vital Signs Latest vital signs: Vital Signs Temp Pulse Resp BP BP Pulse Ox 09/27/17 08:10 98.4 F 94 H 14 111/57 98 09/27/17 07:00 105 H 126/77 09/27/17 06:58 100 H 124/59 09/27/17 06:51 97.7 F 09/27/17 06:28 92 H 120/55 09/27/17 05:58 93 H 124/62 09/27/17 04:58 95 H 16 133/77 09/27/17 04:28 99 H 130/80 09/27/17 03:58 93 H 125/60 09/27/17 03:28 86 16 121/64 09/27/17 02:55 84 20 133/60 09/27/17 02:40 88 18 132/63 09/27/17 02:24 104 H 140/82 09/27/17 02:10 87 139/76 09/27/17 01:55 106 H 20 152/95 09/27/17 01:40 116 H 20 152/96 09/27/17 01:25 101 H 16 155/88 09/27/17 01:09 90 16 131/63 09/27/17 00:40 94 H 134/78 09/27/17 00:30 99 H 153/88 09/27/17 00:26 103 H 139/82 09/27/17 00:24 94 H 130/68 09/27/17 00:21 94 H 146/93 09/27/17 00:19 98 H 148/87 09/27/17 00:17 102 H 147/93 09/27/17 00:15 100 H 134/73 09/27/17 00:13 101 H 147/84 09/27/17 00:12 101 H 150/61 09/26/17 23:31 98.8 F 09/26/17 23:20 98 H 18 132/89 09/26/17 23:15 96 H 20 132/89 09/26/17 23:10 98 H 20 144/91 09/26/17 23:05 94 H 20 138/91 09/26/17 23:00 95 H 18 137/98 09/26/17 22:55 96 H 20 150/87 09/26/17 22:50 90 20 156/89 09/26/17 22:45 92 H 92 H 143/98 09/26/17 22:40 90 18 143/89 09/26/17 22:35 91 H 17 149/85 09/26/17 22:33 90 18 144/87 09/26/17 22:23 98.2 F 100 H 20 151/96 09/26/17 19:18 82 114/64 09/26/17 19:04 97.9 F 71 18 85/50 96 09/26/17 18:53 76 116/61 96 09/26/17 18:04 97.5 F L 97 H 137/84 09/26/17 17:00 112 H 134/85 09/26/17 16:00 127/90 09/26/17 15:36 20 143/84 09/26/17 14:08 97.6 F 18 09/26/17 14:00 130/76 09/26/17 11:55 87 16 129/76 09/26/17 11:04 96.5 F L 85 116/67 09/26/17 10:00 119/62 09/26/17 09:38 111 H 134/63 09/26/17 09:34 123/68 09/26/17 09:24 110 H 16 136/86 Intake and Output 09/26/17 09/27/17 09/27/17 23:59 07:59 15:59 Intake Total 2574.533 1000 Output Total 1500 1275 Balance 1074.533 -275 Intake: IV 2574.533 1000 Lactated Ringers 1,000 ml 887.5 @ 125 mls/hr IV DIRECT AYANA Rx#:[id number] MAGNESIUM SULFATE 40GM/ 1000 1000ML 40 gm In 1,000 ml @ 2 GM/HR 50 mls/hr IV DIRECT AYANA Rx#:[id number] PITOCin/NS 30 UNIT/500ML 87.033 30 units In 500 ml @ 1 MILLIUNITS/MIN 1 mls/hr IV TITR AYANA Rx#:[id number] Output: Urine 1500 1275 Indwelling Catheter 1000 1275 Other: Total, Output Amount 300 300 Estimated Blood Loss 500 - Exam Breasts: Present: normal Cardiovascular: Present: Regular rate Lungs: Present: Clear to auscultation, Normal air movement Abdomen: Present: normal appearance, soft Vulva: both: normal Uterus: Present: normal, firm, fundal height at umbilicus Extremities: Present: normal Deep Tendon Reflex Grade: Normal +2 Incision: Present: normal, dry, dressed - Labs Labs: Abnormal lab results 09/25/17 09/26/17 09/26/17 Range/Units 21:40 11:34 18:53 WBC (4.5-11.0) K/mm3 RBC (3.65-5.03) M/mm3 Hgb (10.1-14.3) gm/dl Hct (30.3-42.9) % MCH (28-32) pg RDW (13.2-15.2) % Fibrinogen (211-480) mg/dl Magnesium 4.70 H 5.60 H (1.7-2.3) mg/dL Crossmatch See Detail 09/27/17 09/27/17 09/27/17 Range/Units 00:00 00:00 00:00 WBC 12.2 H (4.5-11.0) K/mm3 RBC 3.34 L (3.65-5.03) M/mm3 Hgb 8.9 L (10.1-14.3) gm/dl Hct 27.4 L (30.3-42.9) % MCH 27 L (28-32) pg RDW 16.0 H (13.2-15.2) % Fibrinogen 517 H (211-480) mg/dl Magnesium 4.80 H (1.7-2.3) mg/dL Crossmatch 09/27/17 09/27/17 Range/Units 06:04 06:04 WBC (4.5-11.0) K/mm3 RBC (3.65-5.03) M/mm3 Hgb 7.6 L (10.1-14.3) gm/dl Hct 24.6 L (30.3-42.9) % MCH (28-32) pg RDW (13.2-15.2) % Fibrinogen (211-480) mg/dl Magnesium 6.30 H (1.7-2.3) mg/dL Crossmatch
[2017-09-27 16:26] LABS: Hematocrit 21.4 % (30.3-42.9); Hemoglobin 6.8 gm/dl (10.1-14.3)
[2017-09-27] MEDS ORDERED: NACL 0.9% 500 ML 500 ML IV ONE ×2 (18:01→21:58)
--- NOTE | 2017-09-27 18:01 | Event Note ---
Date: 09/27/17 Dr. Ryan informed of most recent H&H, Orders to transfuse 2 units ready in blood bank. Jazlyn VILLANUEVA informed of plan.
[2017-09-27] MEDS ORDERED: TYLENOL PO ONE ×2 (18:02→21:37)
[2017-09-27] MEDS ORDERED: BENADRYL PO ONE (18:02)
[2017-09-27] MEDS ORDERED: BENADRYL PO PRN (21:42)
[2017-09-28] MEDS ORDERED: BOOSTRIX IM ONE (06:00)
--- NOTE | 2017-09-28 08:19 | Progress Note ---
Assessment and Plan Pt sleeping soundly No c/o voiced. VSS 130/70 FF below umb Lochia small Abdomen soft slight tenderness. H&H post-transfusion pending (pt has received 2 units) Stable s/p c/s, PPH, PreE. P: continue pathway Re-eval with lab results Close observation of bleeding Advance as tolerated. aware. Subjective - Subjective Date of service: 09/28/17 (Pt resting w/o complaint ) Principal diagnosis: Day # 1 postop s/p LTCS, PPH, Preeclampsia Patient reports: appetite normal, voiding normally, pain well controlled, ambulating normally : doing well Objective - Vital Signs Latest vital signs: Vital Signs Temp Pulse Resp BP BP Pulse Ox 09/28/17 06:46 18 09/28/17 05:46 18 09/28/17 03:25 98.6 F 82 18 130/70 09/28/17 02:54 98.5 F 80 20 137/85 09/28/17 02:24 98.8 F 79 18 126/82 09/28/17 01:54 98.6 F 82 20 137/87 09/28/17 01:24 98.6 F 87 18 126/76 09/28/17 01:09 98.5 F 88 18 132/85 09/28/17 01:05 98.5 F 84 18 132/85 09/28/17 00:35 98.6 F 80 18 120/70 09/28/17 00:05 98.5 F 88 20 120/70 09/27/17 23:35 98.4 F 90 18 123/74 09/27/17 23:05 97.7 F 92 H 20 143/85 09/27/17 22:50 99.1 F 90 18 133/83 09/27/17 22:41 99.4 F 90 18 133/74 09/27/17 20:54 99.4 F 104 H 18 133/74 09/27/17 18:16 98.2 F 94 H 16 137/84 99 09/27/17 16:13 98.8 F 88 20 123/75 98 09/27/17 14:03 98.4 F 100 H 18 124/71 93 Intake and Output 09/27/17 09/28/17 09/28/17 22:59 06:59 14:59 Intake Total 600 740 Output Total 4000 800 Balance -3400 -60 Intake: Oral 360 Intake, Free Water 240 240 Blood Product 0 500 Leukoreduced Red Blood 250 Cells Unit [id number] Leukoreduced Red Blood 0 250 Cells Unit [id number] Output: Urine 4000 800 Indwelling Catheter 4000 800 Other: Total, Intake Amount 360 Total, Output Amount 1500 800 - Exam Breasts: Present: normal Cardiovascular: Present: Regular rate Lungs: Present: Normal air movement Abdomen: Present: normal appearance, soft, normal bowel sounds Vulva: both: normal Uterus: Present: normal, firm, fundal height below umbilicus, other (scant bleeding noted on pad; RN reports no heavy bleeding seen) Extremities: Present: normal Deep Tendon Reflex Grade: Normal +2 Incision: Present: normal, dry, intact, dressed (to be removed this AM) - Labs Labs: Abnormal lab results 09/25/17 09/27/17 09/27/17 Range/Units 21:40 15:37 15:37 Hgb 6.8 L (10.1-14.3) gm/dl Hct 21.4 L (30.3-42.9) % Magnesium 5.70 H (1.7-2.3) mg/dL Crossmatch See Detail 09/27/17 09/28/17 Range/Units 21:15 00:08 Hgb (10.1-14.3) gm/dl Hct (30.3-42.9) % Magnesium 5.60 H 4.40 H (1.7-2.3) mg/dL Crossmatch
[2017-09-28 08:44] LABS: Hematocrit 23.5 % (30.3-42.9); Hemoglobin 7.9 gm/dl (10.1-14.3)
[2017-09-28] MEDS ORDERED: FEOSOL PO SCH (10:00)
[2017-09-28] MEDS ORDERED: COLACE PO SCH (10:00)
--- NOTE | 2017-09-29 09:16 | Discharge Summary ---
Providers - Providers Date of Admission: 09/25/17 20:02 Date of discharge: 09/29/17 (pt ask to be d/c ) Attending physician: CANDI SÁNCHEZ 09/27/17 00:03 Consult to Welfare Administrator [CONS] Routine Reason For Exam: Primary care physician: CANDI SÁNCHEZ Hospitalization Reason for admission: induction of labor (post dates; PreE) Delivery: Procedure: primary low transverse Episiotomy: none Laceration: none Incision: normal, dry, intact Discharge diagnosis: IUP at term delivered [place] baby: female Hospital course: uncomplicated primary section for arrest of dilatation; Mild PreE tx with MGSO4 Pt OOB ambulating in room preparing for d/c Req to go home today VSS BP 128/84 FF below umb Lochia scant Incision D&I No s/sx of anemia Doing very well s/p c/s , PPH, PreE P: d/c today with instructions Appt made for f/u in office 10-02-17 @ 1030 Call with DUMONT, blurred vision, chest pain. RX provided @ d/c Condition at discharge: Good Disposition: DC-01 TO HOME OR SELFCARE - Discharge Diagnoses (1) delivery delivered Status: Acute Comment: RTO 1 week postop check Plan - Discharge Medications Prescriptions: Ibuprofen [Motrin 800 MG tab] 800 mg PO TID PRN #30 tablet PRN Reason: Pain oxyCODONE /ACETAMINOPHEN [Percocet 5/325 mg] 1 - 2 tab PO Q4HR PRN #30 tablet PRN Reason: Pain - Provider Discharge Summary Activity: routine, no sex for 6 weeks, no heavy lifting 4 weeks, no strenuous exercise Diet: routine Instructions: routine Additional instructions: [] Smoking cessation referral if applicable(refer to patient education folder for contact #) [] Refer to [facility] Booklet Call your doctor immediately for: * Fever > 100.5 * Heavy vaginal bleeding ( >1 pad per hour) * Severe persistent headache * Shortness of breath * Reddened, hot, painful area to leg or breast * Drainage or odor from incision. * Keep incision clean and dry at all times and follow doctor's instructions regarding bathing/showering - Follow up plan Follow up: CANDI SÁNCHEZ MD [Primary Care Provider] - 10/02/17 10:30 am (Congratulations! Please call [phone] with any headache, unrelieved with Tylenol, blurred vision, chest pain. Please keep your appointment as scheduled. Take medications as prescribed. Call with any concerns. )
[2017-09-29 10:32] VITALS: BP 132/83
== END 2017-09-29 11:10 | disposition home or self-care (01) | DRG 765 ==
LOC: LD 20:02 → OB 09-26 23:57 → LD 09-27 00:47 → OB 09-27 11:32
PROVIDERS: ADMIT Obstetrics & Gynecology; ATTEND Obstetrics & Gynecology
PROC: 10D00Z1 Extraction of Products of Conception, Low, Open Approach (ICD-10-PCS; principal; 2017-09-26)
PROC: 30233N1 Transfusion of Nonautologous Red Blood Cells into Peripheral Vein, Percutaneous Approach (ICD-10-PCS; 2017-09-27)
DX: O48.0 Post-term pregnancy (principal); O72.2 Delayed and secondary postpartum hemorrhage; Z3A.41 41 weeks gestation of pregnancy; O11.4 Pre-existing hypertension with pre-eclampsia, complicating childbirth; O61.0 Failed medical induction of labor; O62.0 Primary inadequate contractions; Z37.0 Single live birth
CPT/HCPCS: 36415; 81001; 82565; 83615; 83735; 84450; 84460; 84550; 85014; 85018; 85027; 85384; 85610; 85730; 86592; 86850; 86900; 86901; 86920; 99211; C1765; G0463; J0690; J1885; J2274; J2405; J2590; J2765; J3010; J3475; J7030; J7040; J7120; J7121; P9016